=== PATIENT | female | born 1935 | race Caucasian/White ===

== ENCOUNTER 2017-04-08 22:27 | Inpatient (IN) | payer OTHER, BC ==
[~2017-04-08] VITALS: Ht 160 cm; Wt 93.7 kg
[2017-04-08 23:10] LABS: BASOPHIL (%) 0.1 % (0-1); EOSINOPHIL (%) 0.1 % (0-5); HEMATOCRIT 44.3 % (36.0-46.0); HEMOGLOBIN 14.5 G/DL (11.9-15.5); IMMATURE GRANULOCYTE (%) 0.4 % (0.0-0.7); LYMPHOCYTE (%) 1.8 % (15-42); LYMPHOCYTE COUNT 0.3 K/uL (1.0-2.8); MCH 29.2 PG (29.0-34.0); MCHC 32.7 G/DL (30.0-36.0); MCV 89.1 FL (83-99); MONOCYTE (%) 1.4 % (3-12); MONOCYTE COUNT 0.2 K/uL (0-0.8); NEUTROPHIL (%) 96.2 % (45-76); NEUTROPHIL COUNT 15.3 K/uL (1.8-6.4); PLATELET COUNT 201 K/uL (156-360); RBC DIS.WIDTH-CV 14.5 % (11.8-14.6); RBC DIS.WIDTH-SD 46.7 % (39-53); RED BLOOD COUNT 4.97 M/uL (3.80-5.20); WHITE BLOOD COUNT 15.9 K/uL (4.1-10.2)
[2017-04-08 23:19] LABS: ALBUMIN 3.8 g/dL (3.2-4.8); CHLORIDE 97 mEq/L (99-109); POTASSIUM 5.1 mEq/L (3.7-5.4); SODIUM 135 mEq/L (136-147)
[2017-04-08 23:22] LABS: GLUCOSE 252 mg/dL (70-99); TOTAL PROTEIN 7.3 g/dL (6.4-8.3)
[2017-04-08 23:24] LABS: TOTAL BILIRUBIN 2.5 mg/dL (0.0-1.0)
[2017-04-08 23:25] LABS: ALKALINE PHOSPHATASE 212 IU/L (3-129)
[2017-04-08 23:27] LABS: AST (GOT) 276 IU/L (2-34); UREA NITROGEN (BUN) 18 mg/dL (9-23)
[2017-04-08 23:29] LABS: ALT (GPT) 103 IU/L (3-49)
[2017-04-08 23:31] LABS: TROP-I INTERPRETATION NEGATIVE; TROPONIN-I < 0.01 ng/mL (0.0-0.30)
[2017-04-08 23:32] LABS: GFR ESTIMATE (CALCULATED) 56 mL/min/; LIPASE < 0 U/L (1.0-51.0)
[2017-04-09 01:07] LABS: APPEARANCE CLEAR ((CLEAR)); BILIRUBIN NEGATIVE; BLOOD SMALL; COLOR YELLOW ((YELLOW)); GLUCOSE (STRIP) >=500; KETONES 20; LEUKOCYTES NEGATIVE; NITRITE NEGATIVE; PROTEIN (STRIP) NEGATIVE; SPECIFIC GRAVITY 1.011 (1.000-1.030)
[2017-04-09 01:12] LABS: BACTERIA RARE /HPF; EPITHELIAL CELLS RARE /HPF; MUCUS TRACE /LPF; UCUL ADDED? NO; WHITE BLOOD CELLS 0-5 /HPF (0-5)
[2017-04-09] MEDS ORDERED: SYNTHROID137 MCG PO (03:31)
[2017-04-09] MEDS ORDERED: LOSARTAN POTASS25 MG PO (03:31)
[2017-04-09] MEDS ORDERED: BISOPROLOL FUMAR5 MG PO (03:31)
[2017-04-09] MEDS ORDERED: NOVOLOG PE100 UNITS/ SC (03:32)
[2017-04-09] MEDS ORDERED: LEVEMIR FL100 UNIT/1 SC (03:32)
[2017-04-09] MEDS ORDERED: CITALOPRAM HBR10 MG PO (03:32)
[2017-04-09] MEDS ORDERED: PEPCID20 MG PO (03:33)
[2017-04-09 04:53] VITALS: BP 89/51
[2017-04-09 07:30] VITALS: BP 108/56
[2017-04-09 08:51] LABS: MCH 29.3 PG (29.0-34.0); MCHC 32.4 G/DL (30.0-36.0); MCV 90.2 FL (83-99); PLATELET COUNT 207 K/uL (156-360); RBC DIS.WIDTH-CV 14.6 % (11.8-14.6); RBC DIS.WIDTH-SD 48.2 % (39-53); WHITE BLOOD COUNT 28.4 K/uL (4.1-10.2)
[2017-04-09 09:06] LABS: ALBUMIN 3.2 g/dL (3.2-4.8); CHLORIDE 101 mEq/L (99-109); POTASSIUM 4.7 mEq/L (3.7-5.4); SODIUM 135 mEq/L (136-147)
[2017-04-09 09:08] LABS: GLUCOSE 300 mg/dL (70-99)
[2017-04-09 09:12] LABS: ALKALINE PHOSPHATASE 202 IU/L (3-129); GFR ESTIMATE (CALCULATED) 56 mL/min/
[2017-04-09 09:13] LABS: UREA NITROGEN (BUN) 21 mg/dL (9-23)
[2017-04-09 09:14] LABS: AST (GOT) 378 IU/L (2-34); DIRECT BILIRUBIN 2.6 mg/dL (0.0-0.3); TOTAL BILIRUBIN 3.5 mg/dL (0.0-1.0); TOTAL PROTEIN 5.4 g/dL (6.4-8.3)
[2017-04-09 09:15] LABS: ALT (GPT) 198 IU/L (3-49)
[2017-04-09 09:39] LABS: PLAT.SUFFICIENCY ADEQUATE
[2017-04-09 15:20] VITALS: BP 132/72
[2017-04-09 19:25] VITALS: BP 113/62
[2017-04-10 03:32] VITALS: BP 115/56
[2017-04-10 06:40] VITALS: BP 136/65
[2017-04-10 06:53] LABS: HEMATOCRIT 33.9 % (36.0-46.0); HEMOGLOBIN 10.7 G/DL (11.9-15.5); MCH 28.6 PG (29.0-34.0); MCHC 31.6 G/DL (30.0-36.0); MCV 90.6 FL (83-99); RBC DIS.WIDTH-CV 14.9 % (11.8-14.6); RBC DIS.WIDTH-SD 49.1 % (39-53); RED BLOOD COUNT 3.74 M/uL (3.80-5.20); WHITE BLOOD COUNT 22.3 K/uL (4.1-10.2)
[2017-04-10 07:11] LABS: ALBUMIN 2.8 G/DL (3.2-4.8); ALKALINE PHOSPHATASE 135 IU/L (3-129); ALT (GPT) 120 IU/L (3-49); AST (GOT) 134 IU/L (2-34); CHLORIDE 105 MEQ/L (99-109); CREATININE 0.9 MG/DL (0.6-1.3); GFR ESTIMATE (CALCULATED) > 59 mL/min/; POTASSIUM 4.5 MEQ/L (3.7-5.4); SODIUM 137 MEQ/L (136-147); TOTAL BILIRUBIN 1.6 MG/DL (0.0-1.0); TOTAL PROTEIN 5.1 G/DL (6.4-8.3); UREA NITROGEN (BUN) 18 mg/dL (9-23)
[2017-04-10 07:13] LABS: GLUCOSE 147 mg/dL (70-99)
[2017-04-10 07:58] LABS: PLAT.SUFFICIENCY ADEQUATE; PLATELET COUNT 195 K/uL (156-360)
[2017-04-10 11:24] VITALS: BP 130/60
[2017-04-10] MEDS ORDERED: ZYRTEC10 M3 PO (14:57)
[2017-04-10 15:38] VITALS: BP 127/58
[2017-04-10 20:00] VITALS: BP 155/68
[2017-04-10 23:20] VITALS: BP 146/65
[2017-04-11] VITALS (7 sets, daily range): BP systolic 120–180; BP diastolic 64–88
[2017-04-11 06:29] LABS: HEMATOCRIT 33.8 % (36.0-46.0); HEMOGLOBIN 10.5 G/DL (11.9-15.5); MCH 28.5 PG (29.0-34.0); MCHC 31.1 G/DL (30.0-36.0); MCV 91.6 FL (83-99); PLATELET COUNT 185 K/uL (156-360); RBC DIS.WIDTH-SD 49.7 % (39-53); RED BLOOD COUNT 3.69 M/uL (3.80-5.20); WHITE BLOOD COUNT 13.1 K/uL (4.1-10.2)
[2017-04-11 06:52] LABS: ALBUMIN 2.8 G/DL (3.2-4.8); ALKALINE PHOSPHATASE 132 IU/L (3-129); ALT (GPT) 73 IU/L (3-49); CHLORIDE 106 MEQ/L (99-109); DIRECT BILIRUBIN 0.3 mg/dL (0.0-0.3); GFR ESTIMATE (CALCULATED) 56 mL/min/; POTASSIUM 4.2 MEQ/L (3.7-5.4); SODIUM 139 MEQ/L (136-147); TOTAL PROTEIN 5.1 G/DL (6.4-8.3); UREA NITROGEN (BUN) 15 mg/dL (9-23)
[2017-04-11 06:55] LABS: AST (GOT) 52 IU/L (2-34); GLUCOSE 107 mg/dL (70-99); TOTAL BILIRUBIN 0.7 MG/DL (0.0-1.0)
[2017-04-12 00:06] VITALS: BP 165/80
[2017-04-12 03:05] VITALS: BP 166/72
[2017-04-12 08:00] VITALS: BP 177/80
[2017-04-12 08:25] LABS: HEMATOCRIT 40.8 % (36.0-46.0); MCH 30.3 PG (29.0-34.0); MCHC 32.6 G/DL (30.0-36.0); MCV 92.9 FL (83-99); NRBC (%) 0.2 /100 WBC (0-0); PLATELET COUNT 192 K/uL (156-360); RBC DIS.WIDTH-CV 15.1 % (11.8-14.6); RBC DIS.WIDTH-SD 50.6 % (39-53); RED BLOOD COUNT 4.39 M/uL (3.80-5.20); WHITE BLOOD COUNT 10.1 K/uL (4.1-10.2)
[2017-04-12 09:04] LABS: HEMOGLOBIN 13.3 G/DL (11.9-15.5)
[2017-04-12 09:26] LABS: HEMATOLOGY COMMENT 1 SMEAR COMPATIBLE; PLAT.SUFFICIENCY ADEQUATE
[2017-04-12] MEDS ORDERED: BACTRIM,SEPT1 TABLET PO (10:27)
[2017-04-12 10:49] VITALS: BP 149/67
== END 2017-04-12 11:15 | disposition home health service (06) | DRG 872 ==
LOC: EME → EDBD 22:27 → EME 22:27 → 2EASTP 04-09 02:58 → EDOF 04-09 02:58 → ENRESERV 04-09 03:01 → 2EASTP 04-09 04:36
PROVIDERS: Emergency Medicine; Hospitalist; Physician Assistant; Physician Assistant Medical
PROC: 0FC98ZZ Extirpation of Matter from Common Bile Duct, Via Natural or Artificial Opening Endoscopic (ICD-10-PCS; principal; 2017-04-09)
DX: A41.89 Other specified sepsis (principal); K80.33 Calculus of bile duct with acute cholangitis with obstruction; E86.0 Dehydration; I95.9 Hypotension, unspecified; I10 Essential (primary) hypertension; K21.9 Gastro-esophageal reflux disease without esophagitis; E11.65 Type 2 diabetes mellitus with hyperglycemia; E03.9 Hypothyroidism, unspecified; E66.9 Obesity, unspecified; Z68.36 Body mass index [BMI] 36.0-36.9, adult; Z79.4 Long term (current) use of insulin; Z90.6 Acquired absence of other parts of urinary tract; Z90.49 Acquired absence of other specified parts of digestive tract; Z98.1 Arthrodesis status
CPT/HCPCS: 71045; 74176; 74328; 80048; 80053; 80076; 81003; 82948; 83605; 83690; 84484; 85025; 85027; 85652; 86140; 87040; 87077; 87081; 87186; 87801; 93005; 99281; 99285; C1757; C1769; J1170; J1644; J1815; J2405; J2543; J3010; J7030; J7050

== ENCOUNTER 2017-10-26 21:41 | Inpatient (IN) | payer OTHER, BC ==
[~2017-10-26] VITALS: Ht 160 cm; Wt 99.0 kg
[~2017-10-26 21:41] MED LIST: BACTRIM,SEPT1 TABLET PO; BISOPROLOL FUMAR5 MG PO; CITALOPRAM HBR10 MG PO; LEVEMIR FL100 UNIT/1 SC; LOSARTAN POTASS25 MG PO; NOVOLOG PE100 UNITS/ SC; PEPCID20 MG PO; SYNTHROID137 MCG PO; ZYRTEC10 M3 PO
[2017-10-26 23:23] LABS: BASOPHIL (%) 0.3 % (0-1); BASOPHIL COUNT 0.1 K/uL (0-0.1); EOSINOPHIL (%) 1.2 % (0-5); EOSINOPHIL COUNT 0.2 K/uL (0-0.3); HEMATOCRIT 41.3 % (36.0-46.0); HEMOGLOBIN 13.4 G/DL (11.9-15.5); IMMATURE GRANULOCYTE (%) 1.1 % (0.0-0.7); LYMPHOCYTE (%) 6.7 % (15-42); MCH 29.1 PG (29.0-34.0); MCHC 32.4 G/DL (30.0-36.0); MCV 89.6 FL (83-99); MONOCYTE (%) 6.4 % (3-12); NEUTROPHIL (%) 84.3 % (45-76); NEUTROPHIL COUNT 12.6 K/uL (1.8-6.4); PLATELET COUNT 205 K/uL (156-360); RBC DIS.WIDTH-CV 14.1 % (11.8-14.6); RBC DIS.WIDTH-SD 46.2 % (39-53); RED BLOOD COUNT 4.61 M/uL (3.80-5.20)
[2017-10-26 23:24] LABS: APPEARANCE CLEAR ((CLEAR)); BILIRUBIN NEGATIVE; BLOOD MODERATE; COLOR STRAW ((YELLOW)); GLUCOSE (STRIP) NEGATIVE; KETONES NEGATIVE; LEUKOCYTES NEGATIVE; NITRITE NEGATIVE; PROTEIN (STRIP) NEGATIVE; SPECIFIC GRAVITY 1.006 (1.000-1.030); UROBILINOGEN 0.2 MG/DL (0.2-1.0)
[2017-10-26 23:28] LABS: BACTERIA RARE /HPF; EPITHELIAL CELLS RARE /HPF; MUCUS TRACE /LPF; RED BLOOD CELLS 0-5 /HPF (0-5); UCUL ADDED? NO; WHITE BLOOD CELLS 0-5 /HPF (0-5)
[2017-10-26 23:37] LABS: CHLORIDE 101 mEq/L (99-109); POTASSIUM 4.2 mEq/L (3.7-5.4); SODIUM 136 mEq/L (136-147)
[2017-10-26 23:39] LABS: GLUCOSE 183 mg/dL (70-99)
[2017-10-26 23:43] LABS: CREATININE 0.8 mg/dL (0.6-1.3); GFR ESTIMATE (CALCULATED) > 59 mL/min/
[2017-10-26 23:44] LABS: UREA NITROGEN (BUN) 11 mg/dL (9-23)
[2017-10-27] MEDS ORDERED: LEVOTHYROXINE150 MCG PO (01:17)
[2017-10-27 07:30] VITALS: BP 115/65
[2017-10-27 08:03] LABS: HEMATOCRIT 38.5 % (36.0-46.0); HEMOGLOBIN 12.4 G/DL (11.9-15.5); MCH 28.9 PG (29.0-34.0); MCHC 32.2 G/DL (30.0-36.0); MCV 89.7 FL (83-99); RBC DIS.WIDTH-CV 14.2 % (11.8-14.6); RED BLOOD COUNT 4.29 M/uL (3.80-5.20); WHITE BLOOD COUNT 14.6 K/uL (4.1-10.2)
[2017-10-27 08:41] LABS: PLAT.SUFFICIENCY ADEQUATE; PLATELET COUNT 188 K/uL (156-360)
[2017-10-27 12:00] VITALS: BP 121/72
[2017-10-27 15:09] VITALS: BP 122/58
[2017-10-27 20:34] VITALS: BP 148/68
[2017-10-27 23:28] VITALS: BP 113/58
[2017-10-28 04:04] VITALS: BP 97/53
[2017-10-28 07:53] VITALS: BP 130/62
[2017-10-28 09:13] LABS: HEMATOCRIT 34.5 % (36.0-46.0); HEMOGLOBIN 10.7 G/DL (11.9-15.5); MCH 28.5 PG (29.0-34.0); RBC DIS.WIDTH-CV 14.3 % (11.8-14.6); RBC DIS.WIDTH-SD 48.6 % (39-53); RED BLOOD COUNT 3.75 M/uL (3.80-5.20); WHITE BLOOD COUNT 15.3 K/uL (4.1-10.2)
[2017-10-28 09:28] LABS: HEMATOLOGY COMMENT 1 SN; PLAT.SUFFICIENCY ADEQUATE; PLATELET COUNT 172 K/uL (156-360)
[2017-10-28 09:37] LABS: ALBUMIN 2.9 G/DL (3.2-4.8); ALKALINE PHOSPHATASE 54 IU/L (3-129); ALT (GPT) 11 IU/L (3-49); AST (GOT) 32 IU/L (2-34); CHLORIDE 106 MEQ/L (99-109); CREATININE 0.8 MG/DL (0.6-1.3); GFR ESTIMATE (CALCULATED) > 59 mL/min/; GLUCOSE 136 mg/dL (70-99); POTASSIUM 4.6 MEQ/L (3.7-5.4); SODIUM 137 MEQ/L (136-147); TOTAL BILIRUBIN 0.4 MG/DL (0.0-1.0); TOTAL PROTEIN 5.2 G/DL (6.4-8.3); UREA NITROGEN (BUN) 14 mg/dL (9-23)
[2017-10-28 11:46] VITALS: BP 112/54
[2017-10-28 16:15] VITALS: BP 109/58
[2017-10-28 20:49] VITALS: BP 122/56
[2017-10-28 23:39] VITALS: BP 123/56
[2017-10-29 07:30] VITALS: BP 116/63
[2017-10-29 15:32] VITALS: BP 139/60
[2017-10-29 23:19] VITALS: BP 128/56
[2017-10-30 08:38] VITALS: BP 123/56
[2017-10-30 15:35] VITALS: BP 126/49
[2017-10-30 23:31] VITALS: BP 142/64
[2017-10-31 03:30] VITALS: BP 172/74
[2017-10-31 04:49] VITALS: BP 162/72
[2017-10-31 08:14] VITALS: BP 138/62
[2017-10-31] MEDS ORDERED: ELIQUIS2.5 MG PO (10:37)
[2017-10-31] MEDS ORDERED: DULCOLAX5 MG PO (12:24)
[2017-10-31] MEDS ORDERED: ONCE DAILY1 EACH PO (12:25)
[2017-10-31] MEDS ORDERED: COLACE100 MG PO (12:26)
[2017-10-31] MEDS ORDERED: PERCOCET 10/1 TABLET PO (12:26)
[2017-10-31] MEDS ORDERED: PERCOCET 5/31 TABLET PO (12:27)
[2017-10-31] MEDS ORDERED: LOPRESSOR50 MG PO (12:28)
== END 2017-10-31 11:19 | DRG 470 ==
LOC: EME → EDBD 21:41 → 3EAST 10-27 00:29 → EDOF 10-27 00:29 → ENRESERV 10-27 00:32 → 3EAST 10-27 02:36
PROVIDERS: Emergency Medicine; Internal Medicine; Orthopaedic Surgery
PROC: 0SRR0JA Replacement of Right Hip Joint, Femoral Surface with Synthetic Substitute, Uncemented, Open Approach (ICD-10-PCS; principal; 2017-10-31)
DX: S72.001A Fracture of unspecified part of neck of right femur, initial encounter for closed fracture (principal); S50.311A Abrasion of right elbow, initial encounter; E03.9 Hypothyroidism, unspecified; E66.9 Obesity, unspecified; R41.0 Disorientation, unspecified; R47.01 Aphasia; T40.605A Adverse effect of unspecified narcotics, initial encounter; I10 Essential (primary) hypertension; E11.9 Type 2 diabetes mellitus without complications; W18.30XA Fall on same level, unspecified, initial encounter; Y92.238 Other place in hospital as the place of occurrence of the external cause; Z68.38 Body mass index [BMI] 38.0-38.9, adult; Z79.4 Long term (current) use of insulin
CPT/HCPCS: 70450; 71045; 72125; 73080; 73501; 73502; 80048; 80053; 81003; 82948; 85025; 85027; 86850; 86900; 86901; 93005; 94799; 97530 GP; 99281; 99285; J0131; J0330; J0690; J1100; J1170; J1815; J1885; J2270; J2405; J2710; J3010; J7030; J7040; J7643